=== PATIENT | male | born 1975 | race African-American/Black ===

== ENCOUNTER 2021-06-30 18:27 | Emergency (ER) | payer OTHER ==
[~2021-06-30] VITALS: Ht 180.3 cm; Wt 117.9 kg
[~2021-06-30 18:27] MED LIST: DEXILANT60 MG PO; REGLAN10 MG PO
[2021-06-30] MEDS ORDERED: CRESTOR10 M1 PO (18:46)
[2021-06-30] MEDS ORDERED: NORVASC10 MG PO (18:47)
[2021-06-30 19:28] LABS: BASO % 0.3 % (0.0-1.0); EOS # 0.1 10*3/uL (0.0-0.4); EOS % 0.8 % (1.0-4.0); LYMPH # 2.3 10*3/uL (1.3-4.4); LYMPH % 24.7 % (27.0-41.0); MEAN CELL VOLUME 84.6 fl (80.0-94.0); MEAN CORPUSCULAR HGB 29.4 pg (27.0-31.0); MEAN CORPUSCULAR HGB CONC 34.8 g/dl (33.0-37.0); MEAN PLATELET VOLUME 9.6 fl (9.6-12.3); MONO # 0.6 10*3/uL (0.1-1.0); MONO % 6.1 % (3.0-9.0); NEUT # 6.2 10*3/uL (2.3-7.9); NEUT % 67.9 % (47.0-73.0); PLATELET COUNT AUTOMATED 316 10*3/uL (130-400); RED CELL DISTRI WIDTH 12.4 % (0-14.5); WHITE BLOOD COUNT 9.1 10*3/uL (4.8-10.8)
[2021-06-30 19:51] LABS: ALKALINE PHOSPHATASE 81 U/L (45-117); BUN 12 mg/dl (7-24); CHLORIDE 106 mmol/L (98-107); CREATININE 1.09 mg/dL (0.70-1.30); POTASSIUM 3.5 mmol/L (3.5-5.1); SGOT/AST 24 IU/L (3-35); SGPT/ALT 57 U/L (12-78); SODIUM 139 mmol/L (136-145); TOTAL PROTEIN 7.2 gm/dL (6.4-8.2)
[2021-06-30 20:06] LABS: BILIRUBIN Negative (Negative); BLOOD Negative (Negative); CLARITY Clear (Clear); COLOR Yellow (Yellow); GLUCOSE Negative (Negative); KETONE Trace (Negative); LEUKO ESTERASE Negative (Negative); NITRITE Negative (Negative); PH 5.5 (4.5-8.0); SPECIFIC GRAVITY >= 1.030 (1.001-1.030)
[2021-06-30 20:14] LABS: URINE AMPHETAMINES < 1000 (1000ng/ml); URINE BARBITURATES < 200 (200ng/ml); URINE BENZODIAZEPINES < 200 (200ng/ml); URINE CANNABINOIDS (THC) > 50 (50ng/ml); URINE COCAINE < 300 (300ng/ml); URINE METHADONE < 300 (300ng/ml); URINE OPIATES < 300 (300ng/ml)
[2021-06-30 20:24] LABS: URINE PHENCYCLIDINE < 25 (25ng/ml)
[2021-06-30 20:35] LABS: BACTERIA TRACE; EPITHELIAL CELLS 0-2; MUCOUS 1+; WBC 0-2 wbc/hpf (0-5)
[2021-06-30] MEDS ORDERED: ZITHROMAX250 MG PO (20:38)
== END 2021-06-30 20:49 | disposition home or self-care (01) ==
LOC: ED 18:27
PROVIDERS: Nurse Practitioner Family
DX: J18.9 Pneumonia, unspecified organism (principal); Z20.822 Contact with and (suspected) exposure to COVID-19; Z88.6 Allergy status to analgesic agent; Z79.899 Other long term (current) drug therapy

== ENCOUNTER 2022-06-18 08:52 | Emergency (ER) | payer OTHER ==
[~2022-06-18] VITALS: Ht 154.9 cm; Wt 117.9 kg
[~2022-06-18 08:52] MED LIST changes: +CRESTOR10 M1 PO; +NORVASC10 MG PO; +ZITHROMAX250 MG PO
[2022-06-18] MEDS ORDERED: AUGMENTIN XR 11 EACH PO (09:29)
== END 2022-06-18 09:54 | disposition home or self-care (01) ==
LOC: ED 08:52
DX: S61.250A Open bite of right index finger without damage to nail, initial encounter (principal); Z88.5 Allergy status to narcotic agent; W54.0XXA Bitten by dog, initial encounter; Y93.89 Activity, other specified; Y92.89 Other specified places as the place of occurrence of the external cause; Y99.8 Other external cause status

== ENCOUNTER → 2022-06-23 | Outpatient (CLI) | payer OTHER ==
[~2022-06-23] MED LIST changes: +AUGMENTIN XR 11 EACH PO
== END | disposition home or self-care (01) ==
LOC: WOUNDCARE 02:10
PROVIDERS: ATTEND Nurse Practitioner Family
DX: S61.250A Open bite of right index finger without damage to nail, initial encounter (principal); I10 Essential (primary) hypertension; E78.5 Hyperlipidemia, unspecified; W54.0XXA Bitten by dog, initial encounter; Y93.89 Activity, other specified; Y92.89 Other specified places as the place of occurrence of the external cause; Y99.8 Other external cause status

== ENCOUNTER → 2022-06-30 | Outpatient (CLI) | payer OTHER | LOC: WOUNDCARE 03:45 | PROVIDERS: ATTEND Nurse Practitioner Family | DX: S61.250D Open bite of right index finger without damage to nail, subsequent encounter (principal); S61.200D Unspecified open wound of right index finger without damage to nail, subsequent encounter; E78.5 Hyperlipidemia, unspecified; I10 Essential (primary) hypertension; W54.0XXD Bitten by dog, subsequent encounter ==